=== PATIENT | female | born 1965 ===

== ENCOUNTER 2018-07-23 12:38 | Outpatient (CLI) | payer OTHER ==
--- NOTE | 2018-07-23 14:06 | Mammography Report ---
Reason: SCREENING MAMMO Procedure Date: 07/23/2018 Accession Number: [id number] / [id number] Procedure: [facility] - Screening Mammo w/Andrei CPT Code: FULL RESULT: EXAM: Screening Mammo w/Andrei DATE: 07/23/2018 1:13 PM CLINICAL HISTORY: Screening examination. History of early menses. TECHNIQUE: (B) - Bilateral CC, laterally exaggerated CC, MLO views were obtained. COMPARISON: 07/25/2011. PARENCHYMAL PATTERN: (A) - The breast(s) demonstrate(s) scattered fibroglandular densities. FINDINGS: There are coarse typically benign calcifications. There are no suspicious masses, calcifications, or areas of distortion. IMPRESSION: Benign findings. BI-RADS category 2. RECOMMENDATION: (ANNUAL) - Recommend routine annual screening mammography. BI-RADS CATEGORY: (2) - Benign Findings. STANDARD QUALIFYING STATEMENTS: 1. This examination was not reviewed with the aid of Computer-Aided Detection (CAD). 2. A negative or benign imaging report should not preclude biopsy if clinically suspicious findings are present. 3. Dense breasts may obscure an underlying neoplasm. 4. This examination was reviewed with the aid of 3D breast imaging (tomosynthesis).
== END 2018-07-23 12:39 | disposition home or self-care (01) ==
LOC: DI 12:38
DX: Z12.31 Encounter for screening mammogram for malignant neoplasm of breast (principal)
CPT/HCPCS: 77063; 77067